=== PATIENT | male | born 1975 | race Caucasian/White ===

== ENCOUNTER → 2018-03-02 18:52 | Outpatient (CLI) | payer OTHER, MEDICAID, SELFPAY ==
--- NOTE | 2018-03-02 19:03 | DI.RAD.S_ITS ---
PROCEDURE: XR LUMBAR SPINE MIN 4V INDICATIONS: BACK PAIN LUMBAR TECHNIQUE: 5 views of the lumbar spine acquired. COMPARISON: None. FINDINGS: Bones: No fracture or focal osseous destruction is seen. Levocurvature centered at L3. There is minimal grade 1 retrolisthesis of L3 on L4 however this does not appear to change with flexion and extension lateral views. Mild narrowing of the L3-L4, L4-L5 and L5-S1 disc spaces. There is facet arthropathy throughout the lumbar spine diffusely, most pronounced at L3-S1. Incidentally noted bilateral hip joint degeneration, with decreased right femoral head and neck step-off. Soft tissues: Overlying bowel gas pattern is normal. No suspicious soft tissue calcifications. Flexion/extension: No evidence of abnormal motion. IMPRESSION: Levocurvature centered at L3. Diffuse mild lumbar disc degeneration from L3-S1. Multilevel facet chest. Bilateral hip degeneration with decreased right femoral head neck offset which can be seen in setting of femoral acetabular impingement syndrome. Please correlate clinically. Minimal grade 1 retrolisthesis of L3 on L4. No evidence of abnormal motion. Dictated by: Melchor Ervin M.D. on 03/03/2018 at 9:44 Approved by: Melchor Ervin M.D. on 03/03/2018 at 9:47
== END ==
PROVIDERS: Visit Provider Family Medicine
DX: M51.36 Other intervertebral disc degeneration, lumbar region (principal); M51.37 Other intervertebral disc degeneration, lumbosacral region; M16.0 Bilateral primary osteoarthritis of hip; M43.16 Spondylolisthesis, lumbar region
CPT/HCPCS: 72110